=== PATIENT | male | born 1950 | race Caucasian/White ===

== ENCOUNTER → 2024-01-01 12:57 | Outpatient (REF) | payer OTHER, SELFPAY | LOC: RAD 12:57 | PROVIDERS: ATTENDING PHYSICIAN Student in an Organized Health Care Education/Training Program; FAMILY PHYSICIAN Family Medicine | DX: I73.9 Peripheral vascular disease, unspecified (principal) | CPT/HCPCS: 93922; 93925 ==

== ENCOUNTER → 2025-01-26 12:56 | Outpatient (REF) | payer OTHER, SELFPAY | LOC: RAD 12:56 | PROVIDERS: ATTENDING PHYSICIAN Surgery Vascular Surgery; FAMILY PHYSICIAN Family Medicine | DX: I77.9 Disorder of arteries and arterioles, unspecified (principal); I74.5 Embolism and thrombosis of iliac artery; I71.43 Infrarenal abdominal aortic aneurysm, without rupture | CPT/HCPCS: 76770; 93922 ==

== ENCOUNTER 2025-09-10 23:15 | Day surgery (SDC) | payer OTHER, SELFPAY ==
[2025-09-10 16:34] VITALS: BP 145/99
[2025-09-10 17:01] LABS: Hematocrit 45.3 % (39.0-52.0); Hemoglobin 15.5 g/dL (13.0-18.0); Mean Corp Hgb Conc. 34.2 g/dL (33.0-37.0); Mean Corpuscular Volume 89.3 fL (80.0-94.0); Nucleated Red Blood Cells % 0 % (-); Platelet Count 259 10^3/uL (130-400); Red Cell Dist. Width 14.8 % (11.5-14.5)
[2025-09-10 17:25] LABS: ALT (SGPT) 24 U/L (0-50); AST (SGOT) 42 U/L (17-59); Albumin 4.0 g/dl (3.5-5.0); Alkaline Phosphatase 108 U/L (38-126); Blood Urea Nitrogen 20 mg/dl (9-20); Calcium 9.0 mg/dl (8.4-10.2); Carbon Dioxide 28 mmol/L (22-30); Chloride 96 mmol/L (98-107); Glucose 102 mg/dl (70-99); Lipase 98 U/L (23-300); Potassium 3.8 mmol/L (3.5-5.1); Sodium 131 mmol/L (135-145); Total Protein 7.7 g/dl (6.3-8.2); eGFR > 60.00
[2025-09-10 18:53] VITALS: BP 148/84
--- NOTE | 2025-09-10 19:01 | ED.GENMED ---
History of Present Illness
General
Chief Complaint: Abdominal Pain
Time Seen by Provider: 09/10/25 19:01
History of Present Illness
History of Present Illness:
FOCUSED PAST MEDICAL HISTORY
- Smoker, had appendectomy, had left femoral hernia repair
REVIEW OF OLD RECORDS
- The patient went to the OR for repair of incarcerated left femoral hernia with Dr. Rosa in 2019
Note:
CHIEF COMPLAINT(S)
Abdominal hernia and associated symptoms.
HISTORY OF PRESENT ILLNESS
The patient is a 75-year-old female with a history of prior hernia repair on the left side in late 2018 to early 2019. She presents with concerns about the recurrence of her symptoms. She reports that since approximately 2 AM on Saturday, after a
certain activity, she noticed soreness followed by the protrusion of a mass in her abdomen, similar to a hernia. This current presentation appears to be larger and softer than during her previous surgery.
The patient describes a 35-year history of a constant bump in the same area, but notes recent changes with increased bothersome symptoms and occasional popping, making it seem more prominent. The patient has attempted to manage symptoms by laying
flat and using ice. She also reports experiencing dry heaving, gassiness, and minimal food or liquid intake due to discomfort.
The patient mentions significant abdominal discomfort and a feeling of fullness. She attempts to reduce the hernia herself but describes only transient relief.
Past interventions include hernia surgery on the left side and she experiences increased difficulty with urination, particularly after the surgery, which required a catheter to manage urinary retention exacerbated by anesthesia and other
complications.
The current plan involves obtaining a computed tomography (CT) scan without oral contrast due to existing concerns about her kidney function. The patient expresses concern about fluid intake due to a history of urinary issues, opting against oral
contrast administration. The physician explains the rationale for possibly using intravenous (IV) contrast with IV fluids to minimize risk to kidney function while achieving diagnostic clarity.
SOCIAL DETERMINANTS AFFECTING HEALTH
The patient reports stress related to her prostate issues, which are contributing to her hesitation about certain imaging procedures due to past urinary retention and catheterization.
PHYSICAL EXAM
General: Alert, no acute distress. Thin build
- HEENT: Moist oral mucosa
- Cardiovascular: No murmurs, normal heart rate, regular rhythm, No chest wall tenderness
- Pulmonary: No respiratory distress, breath sounds are clear and equal
- Neurologic: Excellent strength all extremities, no coordination deficits
- Psychiatric: Appropriate mental status, normal insight and judgement
- Extremities: Nontender, no edema, moves all extremities equally
- Skin: No rash, no lesions
Abdomen: Right inguinal hernia mild to moderately tender and unable to reduce
PLAN
1. Obtain a CT scan of the abdomen with IV contrast to better assess the nature and extent of the hernia.
2. Apply ice over the hernia region to assist with swelling and potential reduction.
3. The patient is to remain in a supine position to facilitate natural hernia reduction.
4. Discuss the options for minimal IV fluid administration to maintain patient comfort and protect kidney function.
5. Monitor for signs of urinary retention and assess if further interventions are necessary post-imaging.
DIFFERENTIAL DIAGNOSIS
The Differential Diagnosis includes, in no particular order and is not limited to:
1. Recurrent abdominal hernia
2. Intestinal obstruction
3. Bowel strangulation
4. Incisional hernia
5. Femoral hernia
6. Inguinal hernia
7. Peritoneal mass
8. Urinary retention contributing to symptoms
9. Adhesion from previous surgery
10. Abdominal wall hematoma
RADIOLOGY
- CT personally reviewed and shows right inguinal hernia that appears to contain small bowel with no clear sign of bowel obstruction
LABS
- White count 11.6, hemoglobin normal, normal chemistries
SUMMARY OF ENCOUNTER
The patient is a 75-year-old female presenting with abdominal discomfort and a protruding mass consistent with a hernia. The patient has a history of a prior hernia repair on the left side and now reports recurrent symptoms. The patient attempted to
manage the symptoms with home remedies, including laying flat and applying ice, but presented to the emergency department due to increased pain and a noticeable mass. Attempts to manually reduce the hernia were made without result, and while
sedation was considered for further attempts, it was not pursued as the patient tolerated the procedure well without it.
ASSESSMENT
The patient is presenting with symptoms suggestive of a recurrent hernia, possibly an incisional hernia from previous surgery, or an inguinal hernia that has not been reducible.
PLAN
1. Obtain a CT scan of the abdomen with IV contrast to assess the nature and extent of the hernia.
2. Apply ice over the hernia region for comfort and potential reduction.
3. Position the patient supine to facilitate natural reduction of the hernia.
4. Discuss options for minimal IV fluid administration to ensure patient comfort and protect kidney function.
5. Monitor for signs of urinary retention, evaluating for further intervention post-imaging.
INDEPENDENT REVIEW OF LABS AND INTERPRETATION OF TESTS
My independent review of prior BMP indicates a concern for decreased renal function; thus CT imaging is planned without oral contrast.
MEDICAL DECISION MAKING
- Number and Complexity of Problems Addressed: Chronic conditions affecting care include history of prior hernia surgery and current symptoms possibly indicating recurrent hernia, intestinal obstruction, bowel strangulation, incisional hernia,
femoral hernia, inguinal hernia, peritoneal mass, urinary retention, adhesion from previous surgery, or an abdominal wall hematoma.
-Data:
Category 1:
Clinical information reviewed includes prior history of left-sided hernia repair and outpatient management strategies reported by the patient.
Category 3:
Discussion of management involved considering the potential need for surgical intervention, though sedation was not utilized for further hernia reduction attempts.
-Risk:
Consideration of Admission/Observation: Escalation of care including admission/observation was considered given the patients presenting complaint, exam findings, and underlying comorbidities. However, ultimately the patient may be managed with
outpatient follow-up pending imaging and potential non-reduction of the hernia.
DIAGNOSIS
Recurrent abdominal hernia with inability to reduce
UPDATE
- Patient has chronic right inguinal hernia however over the last few days the bulge has been more significant and now is painful associated with dry heaves and inability to pass gas
- He did not vomit in the ER and did pass gas once
- I attempted a total of 4 times to reduce however was unsuccessful he
- I discussed case with Dr. Rivera who accepts to his service for further management
Past History
Past History
ED Past Medical History: Other (Peripheral vascular disease)
ED Past Surgical History: Appendectomy, Orthopedic and Tonsilectomy
Social History
Tobacco: Former smoker
Alcohol: Occasional
Drug: None
Personal: Single
Living: alone
Employment: Retired
Family History
Family History: Other (Noncontributory)
Phy Exam
Physical Exam
Physical Exam:
See HPI
Course
Orders/Labs/Results
Orders:
Orders
09/10/25 16:42
Electrocardiogram (*1) Urgent
Reason for Study: Tachycardia
09/10/25 16:43
EKG- Treatment ONCE
09/10/25 16:50
Complete Blood Count/With Diff Urgent
Comprehensive Metabolic Panel Urgent
Lipase Urgent
09/10/25 19:14
0.9% Sodium Chloride 500 ml [Nss] 500 ml IV BOLUS
09/10/25 19:15
CT Abd/pelvis W Iv Cont Urgent
Comment:
Reason For Exam: unable to reduce R inguinal hernia
09/10/25 20:24
Urinalysis Reflex To Culture Urgent
Date Specimen was Collected: 09/10/25
Time Specimen was Collected: 20:22
Urine Microscopic Reflex Cult Urgent
Urine Culture Urgent
RO Source: U
Specimen Description:
Date Specimen was Collected: 09/10/25
Time Specimen was Collected: 20:22
Abnormal Lab Results
09/10/25 09/10/25
16:50 20:24
WBC 11.6 H 10^3/uL
(4.8-10.8)
RDW 14.8 H %
(11.5-14.5)
Absolute Neuts (auto) 8.2 H 10^3/uL
(1.4-6.5)
Absolute Monos (auto) 1.1 H 10^3/uL
(0.1-0.6)
Lymphocytes % 19.4 L %
(20.5-51.1)
Monocytes % 9.7 H %
(1.7-9.3)
Sodium 131 L mmol/L
(135-145)
Chloride 96 L mmol/L
(98-107)
Glucose 102 H mg/dl
(70-99)
Urine Ketones 3+ A
(Negative)
Ur Occult Blood Reflex 2+ A
(Negative)
Leukocyte Esterase Rfl 1+ A
(Negative)
Urine RBC 7-10 A /HPF
(0-2)
Urine Albumin (Reflex) 2+ A
(Neg - Trace)
09/10/25 16:50
09/10/25 16:50
Vital Signs
Initial and Last Documented VS:
Initial Vital Signs
Temp Pulse Resp BP Pulse Ox
37.1 C 106 18 145/99 100
09/10/25 16:34 09/10/25 16:34 09/10/25 16:34 09/10/25 16:34 09/10/25 16:34
Last Documented Vital Signs
Temp Pulse Resp BP Pulse Ox
37.1 C 84 18 148/84 98
09/10/25 16:34 09/10/25 18:53 09/10/25 18:53 09/10/25 18:53 09/10/25 19:02
*Pulse Oximetry
SaO2: 98
Oxygen Mode of Delivery: Room air
Patient hypoxic: no
*Critical Care Note
Total Time (30-74mins, 75-104mins- exclusive of procedures): Not Applicable
ED Attending Note
-
Portions of this chart may have been created with voice recognition software.� Occasional wrong word or��sound alike� substitutions may have occurred due to the inherent limitations of voice recognition software.
Discharge Plan
Departure
Prescriptions:
No Action
tadalafil [Cialis] 5 MG tablet
5 mg PO DAILY
oxycodone-acetaminophen 5 MG/325 MG tablet
1 tab PO Q4HPRN PRN (Reason: moderate to severe pain) Qty: 6 0RF
tamsulosin 0.4 MG capsule
0.4 mg PO DAILY Qty: 20 0RF
Referrals:
UNKNOWN - PT NOT,INTERVIEWE [Family Provider]
Interventions
Interventions:
*Risk Screen - Suicide Last Done: 09/10/25 16:34
*General Assessment Last Done: 09/10/25 16:34
*Neglect/Abuse Screening Last Done: 09/10/25 16:34
*ED COVID-19 Vaccine History Last Done: 09/10/25 16:34
*ED Influenza Vaccine History Last Done: 09/10/25 16:34
MF-Toqmah-Esyrkvdcqp Assessment Last Done: 09/10/25 18:51
Discharge Date and Time
Print Language: SOL[place] ISLANDER
[2025-09-10 20:32] LABS: Urine Character Clear (Clear)
[2025-09-10 20:42] LABS: Urine Squamous Cell 0-2 /LPF (Few)
[2025-09-10] MEDS: NSS 500 IV (21:11)
--- NOTE | 2025-09-10 22:57 | HPS.HSE ---
Addendum entered and electronically signed by Munir Rivera MD 09/11/25 07:55:
I saw and examined the patient independently.
The [employer] Specialist's note was reviewed and I agree with the note, assessment and plan except where noted below.
Comment: This is a 75-year-old male with a history of a left femoral hernia repair without mesh in [address] Rosa who presents with right lower quadrant abdominal pain and bulge now worse since admission. CT scan demonstrates an incarcerated
right inguinal hernia. I reviewed the scan last night and it appeared that there was no bowel in his hernia. I suspected that this contained omentum much like his hernia I did back in [address] Rosa.
Will plan for urgent robotic right inguinal hernia repair with possible mesh, possible open, possible bowel resection.
Risks/Benefits/Alternatives, expected postoperative course and possible complications (bleeding, infection, injury to surrounding structures, acute/chronic pain) discussed at length. Patient wishes to proceed with surgery. All questions answered.
Consent obtained.
I spent 70 minutes in total for the care of this patient today including direct patient care and counseling, reviewing labs, imaging, coordination of care, as well as documentation.
Addendum entered and electronically signed by SERENA Flowers 09/10/25 23:53:
pt chews nicotine gum- explained cannot chew gum after midnight.
Original Note:
Family Physician
-
Family Physician: INTERVIEWE UNKNOWN - PT NOT
Chief Complaint
-
abd discomfort, right inguinal hernia bulge
History of Present Illness
75 you male hx of PVD, BPH, LEft inguinal hernia repair 2019 presents to ED at recommendation from PCP for abd discomfort, nausea, and right inguinal hernia bulge that has increased in size since sat. Patient describes a 35 yr hx of right
inguinal hernia that has never really been bothersome and has always been able to manage symptoms himself, but he states Wed night he was masturbating and bulge in RLQ grew larger and more uncomfortable and has not been able to reduce himself. He
went to PCP who was concerned for poss incarceration. The patient has attempted to manage symptoms by laying flat and using ice. He also reports experiencing dry heaving, gassiness, and minimal food or liquid intake due to discomfort. Attempts made
x3 by ED doctor to reduce without success. PT was able to pass emily afterward though.
CT abd: Scattered loops of small bowel are noted containing fluid and air with scattered air-fluid levels. Mild small bowel distention is noted, measuring up to 2.5 cm. This raises possibility of ileus or small bowel obstruction. Of note, there is a
right inguinal hernia measuring up to 4.5 cm. There is subtle protrusion of a structure measuring approximately 2 cm which could represent a loop of small bowel. Possibility of small bowel obstruction as a result of the hernia cannot entirely
excluded.
There is moderate amount of gas noted within the colon, extending from the cecum through the splenic flexure. There is mild colonic fecal residue throughout the remainder the colon. Minor sigmoid diverticulosis. No definitive evidence to suggest
acute diverticulitis.
PT very worried about urine retention due to his Prostate issues. Stated with his last surgery he experienced urinary retention necessitating straight caths and he is very worried this will happen again.
Medical History
Past Medical History
Past Medical History: Reports Other (PVD, erectial dysfunction, BPH with urine retention post op, Bunion right foot, Onychomycosis, neuropathy LE)
Past Surgical History: Reports Appendectomy, Tonsilectomy and Other (left inguinal hernia repair 2019)
Social History
Tobacco: Other (now chews nicotine gum)
Alcohol: Other (few nights a week and some afternoons will sip on a small shot of honey bourbon. Can go days without any W/d symptoms )
Drug: None
Personal: Single
Living: Alone
Employment: Retired
Family History
Family History: Not pertinent
Allergies / Home Medications
Allergies reflects when Allergies were last updated in [facility].
Home Medications with original date entered in [facility]
Allergy/Medication List:
Allergies
Allergy/AdvReac Type Severity Reaction Status Date / Time
No Known Allergies Allergy Verified 09/30/19 12:54
Home Medications
Viagra PRN ED
Review of Systems
-
History Source: Patient
A 12 point ROS was completed and negative except as noted: Yes
Constitutional: Reports No Symptoms
EENT: Reports No Symptoms
Respiratory: Reports No Symptoms
Cardiac: Reports No Symptoms
Abdomen/GI: Reports Abdominal Pain, Nausea, Anorexia and Other (RLQ bulge)
: Reports Other (weaker stream, sometimes will have to push on bladder)
Musculoskeletal: Reports No Symptoms
Skin: Reports No Symptoms
Neurological: Reports No Symptoms
Endocrine: Reports No Symptoms
Hematologic/Lymphatic: Reports No Symptoms
Psych: Reports No Symptoms
Physical Exam
Vital Signs
Vital Signs
Temp Pulse Resp BP Pulse Ox
98.7 F 84 18 148/84 98
09/10/25 16:34 09/10/25 18:53 09/10/25 18:53 09/10/25 18:53 09/10/25 19:02
Physical Exam
General: Well Developed, Well Nourished, No Apparent Distress, Comfortable and Conversant
HEENT: NormoCephalic and Anicteric
Respiratory: Clear, Non Labored Respirations and Other (occasional wet cough)
Cardiac: S1/S2 and Regular Rhythm
Breast: Deferred by me
GI: Soft, Normal Bowel Sounds and Tender (RLQ. golf sized protrusion); No Non Tender, Non Distended or No Hernias
Rectal: Other
Genito-urinary: Deferred by me
Musculoskeletal: No Clubbing and No Cyanosis
Skin: Dry and Other (onychomycosis bilaterally, scab to left knowles, BLE Cooler d/t PVD)
Neuro: Awake, Alert, Oriented, AO x 3, No Motor Deficits and Nonfocal/grossly intact
Psych: Calm
Laboratory Results
-
09/10/25 16:50
09/10/25 16:50
Laboratory Results
Total Bilirubin 0.9 mg/dl (0.2-1.3) 09/10/25 16:50
AST 42 U/L (17-59) 09/10/25 16:50
ALT 24 U/L (0-50) 09/10/25 16:50
Alkaline Phosphatase 108 U/L (38-126) 09/10/25 16:50
Lipase 98 U/L (23-300) 09/10/25 16:50
Data Reviewed
-
CT Scan: Report Reviewed by me and Discussed with Physician
Medical Tests (Nuc Med, Echo, EKG etc): Report Reviewed by me
Impression/Plan
-
IMPRESSION:
incarcerated right inguinal hernia
PLAN:
Admit to service of Dr Rivera
#incarcerated right inguinal hernia
NPO x sips clear and ice until midnight then NPO for OR 09/11
IVF nss@50 (pt does not want fluids given but given poor appetite and low po intake agreed to small amt ivf-The patient expresses concern about fluid intake due to a history of urinary issues
CT abd: Scattered loops of small bowel are noted containing fluid and air with scattered air-fluid levels. Mild small bowel distention is noted, measuring up to 2.5 cm. This raises possibility of ileus or small bowel obstruction. Of note, there is
a right inguinal hernia measuring up to 4.5 cm. There is subtle protrusion of a structure measuring approximately 2 cm which could represent a loop of small bowel. Possibility of small bowel obstruction as a result of the hernia cannot entirely
excluded.
There is moderate amount of gas noted within the colon, extending from the cecum through the splenic flexure. There is mild colonic fecal residue throughout the remainder the colon. Minor sigmoid diverticulosis. No definitive evidence to suggest
acute diverticulitis.
Pain control: pt dos not like taking medications and pain is minimal currently. Tylenol prn, ice pack RLQ prn comfort
#BPH
-pt expressing much concern from previous experience of urine retention when he had left hernia repaired.
-Will add flomax prn increased PVR
#PVD
-does not take any meds for this
DVT prophylaxsis: scd
Full code
[2025-09-11] VITALS (15 sets, daily range): BP systolic 101–154; BP diastolic 61–90; BMI 15.7
--- NOTE | 2025-09-11 01:11 | PTCARENOTE ---
Pt arrived to unit from ED vus stretcher, able to ambulate to bed with minimal assistance. Pt VSS, denies SOB or chest pain, inguinal hernia right groin present, reports minimal pain @ this time. Pt oriented to room and hospital policies, call menjivar
within reach.
[2025-09-11] MEDS: NSS 1000 IV (02:00)
--- NOTE | 2025-09-11 07:51 | W.SUR.PREOP ---
Pre-Operative Surgical Note
-
I have examined this patient prior to the performance of the scheduled procedure.
The patient's condition is unchanged from the time of the current History and
Physical and the patient is able to undergo the scheduled procedure.
[2025-09-11 08:30] LABS: Hematocrit 41.1 % (39.0-52.0); Hemoglobin 14.0 g/dL (13.0-18.0); Mean Corp Hgb Conc. 34.1 g/dL (33.0-37.0); Mean Corpuscular Volume 87.8 fL (80.0-94.0); Nucleated Red Blood Cells % 0 % (-); Platelet Count 190 10^3/uL (130-400); Red Cell Dist. Width 14.8 % (11.5-14.5)
[2025-09-11 08:46] LABS: ALT (SGPT) 20 U/L (0-50); AST (SGOT) 34 U/L (17-59); Albumin 3.1 g/dl (3.5-5.0); Alkaline Phosphatase 92 U/L (38-126); Blood Urea Nitrogen 20 mg/dl (9-20); Calcium 8.2 mg/dl (8.4-10.2); Carbon Dioxide 23 mmol/L (22-30); Chloride 104 mmol/L (98-107); Estimated Creatinine Clearance 61 ml/min; Glucose 59 mg/dl (70-99); Potassium 3.7 mmol/L (3.5-5.1); Sodium 132 mmol/L (135-145); Total Protein 6.2 g/dl (6.3-8.2); eGFR > 60.00
--- NOTE | 2025-09-11 11:41 | W.IMMPOSTOP ---
Surgical Immed Post Op Note
-
Primary Surgeon: Munir Rivera MD
Assisting Surgeon: None
Pre-op Diagnosis: Incarcerated right inguinal hernia
Post-op Diagnosis: Incarcerated right femoral hernia, recurrent left femoral hernia
Procedure Performed:
1. Robotic right incarcerated femoral hernia repair with mesh
2. Robotic left recurrent femoral hernia repair with mesh
Anesthesia Type: General
Specimen / Cultures: Right femoral contents
Estimated Blood Loss: 3 cc
Complications: None
Operative Findings: Incarcerated right femoral hernia containing preperitoneal necrotic fat, Truncated with vessel sealer and sent as a specimen. The patient was noted to have a recurrent left femoral hernia as well. The critical view of the MPO
was achieved bilaterally and then the spaces were reinforced with large Bard 3D max uncoated polypropylene mesh. The left upper quadrant and midline ports were closed with Vicryl and PDS Maxon respectively.
POST OP PLAN:
Imaging: None
Labs: Routine AM
Diet: Clears, will advance diet as tolerated
Analgesia: Tylenol 650mg q6 Isamar, Dilaudid 0.5mg q2h PRN
Neuro/vascular checks: Per unit protocol
AC/AP: Hold Therapeutic AC, Ok for DVT PPx
Activity: Ad Suzi
Wound/Incisions/Drains: Routine
Abx: None
Dispo: RNF
--- NOTE | 2025-09-11 11:47 | OR.RPT ---
Operative Report
Operative Report
Patient Name: Jeffry Saenz
: 1950
Date of Operation: 09/11/2025
Preoperative Diagnosis: Incarcerated right inguinal hernia
Postoperative Diagnosis: Incarcerated right femoral hernia, recurrent left femoral hernia
Procedure(s):
1. Robotic incarcerated right femoral Hernia Repair with mesh, (JOSELUIS approach)
2. Robotic recurrent left femoral hernia repair with mesh, (JOSELUIS approach)
Surgeon(s):
Dr. Rivera
Tool Crib Supervisor(s):
None
Anesthesia: General
Estimated Blood Loss: 3 cc
Urine Output: None
Drains/Lines/Implants: Large 3D Max Bard mid weight uncoated polypropylene mesh x2
Specimens: Right femoral contents
Indication for surgery: This is a 75-year-old male with a history of a open primary left femoral hernia repair without mesh in [address] Rosa, done from an external approach. He presents with a 4 to 5-day history of right inguinal bulge in the
setting of a known bulge for many years. CT scan concerning for an incarcerated right femoral hernia but it did not appear to be containing bowel, nevertheless on exam this morning his pain was notably worsened and there was overlying skin changes
concerning for necrosis of the hernia contents so after discussion of risk benefits and alternatives he was consented and booked for urgent repair.
Operative Findings: Incarcerated right femoral hernia containing preperitoneal necrotic fat, Truncated with vessel sealer and sent as a specimen. The patient was noted to have a recurrent left femoral hernia as well. The critical view of the MPO
was achieved bilaterally and then the spaces were reinforced with large Bard 3D max uncoated polypropylene mesh. The left upper quadrant and midline ports were closed with Vicryl and PDS Maxon respectively.
Details of the operation:
The patient was brought to the Operating Room and placed in the supine position with the arms tucked. IV antibiotics were infused and Venodyne stockings placed. Following uneventful induction of general endotracheal anesthesia, an orogastric tube
was placed. The abdomen was prepped and draped in the usual sterile fashion. The abdomen was entered using a Veress technique which required 1 pass, pneumoperitoneum to 15 mmHg was obtained without difficulty. An 8mm trochar was passed through the
abdominal wall roughly 20 cm cephalad to the inguinal canal. We then confirmed that no inadvertent injury was made while passing the trocar or Veress needle. We then placed two additional 8 mm ports in the left upper and right upper quadrants. We
then docked the robot with a Prograsper in the left hand port and monopolar scissors in the right. An obvious right femoral as well as a left femoral hernia were identified. There was no bowel going through the right femoral canal. We then began
by creating a flap at the level of the ASIS on the right side laterally working our way medially to the medial umbilical fold. Staying onto the peritoneum we were able to circumferentially dissect around the hernia sac and and peel it off of the
underlying spermatic cord and testicular vessels, taking care to preserve them. Medially we identified the midline pubis as well as Oswaldo's ligament and ensured to dissect 2 cm below the pubic rim over the bladder. There is a significant amount
of fat in the right femoral space that took dividing the lacunar ligament first to be able to reduce the contents which was preperitoneal fat. Because it was somewhat necrotic and the blood supply had been compromised, I elected to resect this fat
using a vessel sealer across the stalk. This was removed to specimen 1. After exposure of the entire myopectineal orifice we identified and reduced: An incarcerated femoral hernia without indirect or direct components. There was a small cord
lipoma that was reduced. We then repeated the exact same dissection on the left side. After exposure of the entire myopectineal orifice we identified and reduced: A small femoral hernia containing preperitoneal fat. Again there was no indirect or
direct components to the hernia and there was no cord lipoma.
We then fixated a large 3D max mesh with a 2-0 Vicryl stitch at coopers medially and superior laterally x2 as well as together in the midline. The flap was then closed with a running 2-0 barbed monocryl suture ensuring that the tail was cut flush
with the medial fat pad so that no barbs were exposed. During the closure of the flap an Angiocath was inserted and 20 cc of quarter percent Marcaine was instilled. The area in the flap cavity was then evacuated of air confirming that the mesh was
flush and there were no folds. A small rent in the peritoneum was noted and closed with 2-0 Vicryl. All needles and instruments were then removed and the robot was undocked. The abdomen was then desufflated, and pneumoperitoneum evacuated. The
left upper quadrant port site as well as the midline port sites were closed with 2-0 Vicryl and 0 Maxon respectively. All skin sites were then closed with 4-0 Monocryl followed by Dermabond. Counts were correct and overall, the patient tolerated
the procedure well and was taken to the Recovery Room postoperatively in stable condition.
I was the attending physician and performed the procedure without assistance. I was present for all portions of the case.
Munir Rivera MD
[2025-09-11] MEDS: FLOMAX 0.4 MG PO (12:30)
--- NOTE | 2025-09-11 13:18 | PTCARENOTE ---
Addendum entered by Chantelle Valdes RN 09/11/25 13:57:
Crepitus palpated on the patients chest.
Original Note:
1300 Pt arrived from PACU. Pt AAOX3. VSS. 95% ON 2L O2. 4 Lap sites open to air with glue. IVF infusing. call menjivar with in reach.
[2025-09-11] MEDS: ROXICODONE 5 MG PO (15:59)
--- NOTE | 2025-09-11 16:21 | CM ---
Initial assessment completed with patient who lives alone in a 1 story plus loft cottage with no basement. Bedroom is the loft and full bath on 1st floor, no steps to enter. [employer]ACH[employer] patient was independent in ADL's and ambulation. No DME. No in-home
services. No HC-POA. No VA benefits. No psychiatric hospitalizations. PCP is Dr. Derrick Lopez with [facility]. Pharmacy is [facility] in [place]. Discharge POC: Anticipate home with no needs. Declined CALLUM RN.
[2025-09-11] MEDS: DILAUDID 0.5 MG IV (19:53)
[2025-09-11] MEDS: NSS IV (21:06)
[2025-09-11] MEDS: TORADOL 15 MG IV (23:28)
[2025-09-12] MEDS: DILAUDID 0.5 MG IV (00:20)
[2025-09-12 03:22] VITALS: BP 135/70
[2025-09-12] MEDS: ROXICODONE 5 MG PO ×3 (04:29→16:19)
--- NOTE | 2025-09-12 05:04 | PTCARENOTE ---
Pt reports pain has been constant and not well controlled, but pt has been sleeping throughout the night and is resting comfortably in bed on rounds. Pt bladder scanned r/t he reports he feels he is having trouble voiding with dey. Dey has
remained patent throughout shift, no kinks bladder scan 15 ml. Abdomen tender near surgical sites, but no distention noted.
[2025-09-12 07:25] VITALS: BP 146/78
[2025-09-12] MEDS: TORADOL 15 MG IV ×3 (09:14→22:08)
[2025-09-12] MEDS: MIRALAX 17 GRAMS PO (09:15)
--- NOTE | 2025-09-12 10:00 | W.PN.GS2 ---
Today's Communication / Plan
-
Regular diet
Dispo planning
Assessment / Plan
-
This is a 75-year-old male who presented with an incarcerated right inguinal hernia POD #1 status post robotic incarcerated right femoral hernia repair as well as a recurrent left femoral hernia repair with mesh.
Afebrile vital signs stable, exam reassuring. Doing well, expected postoperative course.
Okay for regular diet, advised patient to go slow.
Tylenol, Toradol, oxycodone, morphine for breakthrough.
Ice packs.
Out of bed and ambulate as able.
WALI Dey, trial of void.
If patient is able to void, tolerated his lunch and his pain is controlled on oral pain medications he may be able to be discharged later today.
Discharge instructions updated
Time Spent
Total Time Spent with Patient (in minutes): 20
Subjective Data
-
Date of Service: September 12, 2025
Interval Events:
No acute events overnight. Slept well. Pain Controlled. Denies Nausea/Vomiting, +bowel function. Tolerating diet.
Objective Data
-
Intake and Output
09/11/25 09/12/25 09/13/25
06:59 06:59 06:59
Intake Total 250 / 250 1280 / 1280
Output Total 1325 / 1325
Balance 250 / 250 -45 / -45
Intake:
Oral fluids 480 / 480
IV fluids (Total) 250 / 250 800 / 800
Normosol 300 / 300
Output:
Urine, Dey 1125 / 1125
Urine, Voided 200 / 200
Vital Signs
Temp Pulse Resp BP Pulse Ox
97.9 F 90 16 146/78 95
09/12/25 07:25 09/12/25 07:25 09/12/25 07:25 09/12/25 07:09/12/25 07:25
Lab Results
09/11/25 07:29
09/11/25:
Calcium 8.2 mg/dl (8.4-10.2) L 09/11/25:
Total Bilirubin 1.1 mg/dl (0.2-1.3) 09/11/25:
AST 34 U/L (17-59) 09/11/25:
ALT 20 U/L (0-50) 09/11/25:
Alkaline Phosphatase 92 U/L (38-126) 09/11/25:
Total Protein 6.2 g/dl (6.3-8.2) L 09/11/25:
Albumin 3.1 g/dl (3.5-5.0) L 09/11/25:29
Physical Exam
-
GENERAL/NEURO: Awake, Alert, no distress
CHEST: Unlabored breathing on RA
ABDOMEN: Soft, appropriately tender, mildly distended. Incisions clean dry and intact.
Patient has a dey catheter: Yes
Patient has a central line: No
[2025-09-12] MEDS: TYLENOL 650 MG PO ×2 (11:45→17:57)
[2025-09-12 11:58] VITALS: BP 147/88
--- NOTE | 2025-09-12 15:16 | W.DS.TRANS ---
Addendum entered and electronically signed by SERENA Flores 09/13/25 12:48:
dictated #[id number]
Original Note:
DC Summary - [employer] Supervisor
-
Discharge Instructions:
Discharge Diagnosis/Procedures Incarcerated right femoral hernia, recurrent
left femoral hernia
Robotic bilateral femoral hernia repair
Diet As tolerated
Activity No strenuous activity
Bathing Restrictions OK to Shower
Instructions:
Stand-Alone Forms:
Changes to Home Medications: No
Discharge Medications:
DC Medications w/original date entered in [employer]
sildenafil 100 mg tablet 100 mg PO DAILY PRN ED 09/11/25
acetaminophen 325 mg tablet 650 mg (2 x 325 mg) PO Q6HPRN PRN mild pain #14 tabs 09/12/25
ibuprofen 600 mg tablet 600 mg PO Q6H PRN pain #14 tabs 09/12/25
tramadol 50 mg tablet 25 mg (1/2 x 50 mg) PO Q6HPRN PRN severe pain/breakthrough pain #14 tabs 09/12/25
Home Medication Changes
Pending Results: No
[2025-09-12 15:35] VITALS: BP 170/90
[2025-09-12 16:11] VITALS: BMI 15.7
[2025-09-12 18:04] VITALS: BP 142/85
[2025-09-12 23:00] VITALS: BP 169/98
[2025-09-13 00:30] VITALS: BP 158/68
[2025-09-13] MEDS: TYLENOL PO (00:46)
[2025-09-13] MEDS: TORADOL 15 MG IV ×2 (02:49→10:06)
[2025-09-13] MEDS: TYLENOL 650 MG PO ×2 (06:08→11:39)
[2025-09-13 07:20] VITALS: BP 156/86
[2025-09-13] MEDS: MIRALAX 17 GRAMS PO (09:04)
--- NOTE | 2025-09-13 09:05 | CM ---
Chart reviewed and patient is for discharge today, patient's brother to transport patient, [facility] letter completed.
Plan; Home today no needs.
--- NOTE | 2025-09-13 10:22 | W.PN.GS2 ---
Today's Communication / Plan
-
dispo planning
Assessment / Plan
-
This is a 75-year-old male who presented with an incarcerated right inguinal hernia POD #2 status post robotic incarcerated right femoral hernia repair as well as a recurrent left femoral hernia repair with mesh.
Afebrile vital signs stable, exam reassuring. Doing well, expected postoperative course.
Plan:
Okay for regular diet, advised patient to go slow.
Tylenol, Toradol, oxycodone
c/w tamsulosin
Ice packs.
Out of bed and ambulate as able.
D/C to home
Subjective Data
-
Date of Service: September 13, 2025
Pt seen and examined at bedside with Dr. Rivera. Efrain n/v. Tolerating diet. Pain present but improving overall. Voiding since dey removed.
Objective Data
-
Intake and Output
09/12/25 09/13/25 09/14/25
06:59 06:59 06:59
Intake Total 1280 / 1280 1307 / 1307
Output Total 1325 / 1325 1180 / 1180
Balance -45 / -45 127 / 127
Intake:
Oral fluids 480 / 480 1307 / 1307
IV fluids (Total) 800 / 800
Normosol 300 / 300
Output:
Urine, Dey 1125 / 1125 175 / 175
Urine, Voided 200 / 200 1005 / 1005
Vital Signs
Temp Pulse Resp BP Pulse Ox
97.9 F 69 16 156/86 97
09/13/25 07:20 09/13/25 07:20 09/13/25 07:20 09/13/25 07:20 09/13/25 07:20
Lab Results
09/11/25 07:29
09/11/25 07:29
Calcium 8.2 mg/dl (8.4-10.2) L 09/11/25 07:
Total Bilirubin 1.1 mg/dl (0.2-1.3) 09/11/25:
AST 34 U/L (17-59) 09/11/25:
ALT 20 U/L (0-50) 09/11/25:
Alkaline Phosphatase 92 U/L (38-126) 09/11/25:
Total Protein 6.2 g/dl (6.3-8.2) L 09/11/25:
Albumin 3.1 g/dl (3.5-5.0) L 09/11/25:
Physical Exam
-
GENERAL/NEURO: Awake, Alert, no distress
CHEST: Unlabored breathing on RA
ABDOMEN: Soft, appropriately tender, ND, edema to groin (mild). Incisions clean dry and intact.
Patient has a dey catheter: No
Patient has a central line: No
[2025-09-13 12:25] VITALS: BP 166/87
== END 2025-09-13 12:48 | disposition home or self-care (01) ==
LOC: SDS 23:15
PROVIDERS: Emergency Medicine; Nurse Practitioner Family; ATTENDING PHYSICIAN Surgery; EMERGENCY PHYSICIAN Emergency Medicine
DX: K41.31 Unilateral femoral hernia, with obstruction, without gangrene, recurrent (principal); K41.30 Unilateral femoral hernia, with obstruction, without gangrene, not specified as recurrent; Z98.890 Other specified postprocedural states
CPT/HCPCS: 49557; 49659; 74177; 80053; 81003; 81015; 83690; 85025; 87086; 88304; 93005; 99285; C1781; G0378; Q9967